=== PATIENT | male | born 1995 | race Caucasian/White ===

== ENCOUNTER 2020-09-12 10:59 | Emergency (ER) | payer OTHER ==
[~2020-09-12] VITALS: Ht 182.9 cm; Wt 77.1 kg
[2020-09-12] MEDS ORDERED: BENADRYL25 MG PO (11:38)
[2020-09-12] MEDS ORDERED: PENICILLIN V P500 MG PO (11:39)
[2020-09-12] MEDS ORDERED: DIFLUNISAL500 MG PO (11:39)
== END 2020-09-12 14:09 | disposition home or self-care (01) ==
LOC: ED 10:59
DX: S39.012A Strain of muscle, fascia and tendon of lower back, initial encounter (principal); X58.XXXA Exposure to other specified factors, initial encounter
CPT/HCPCS: 72080; 99283-25